=== PATIENT | male | born 2000 | race African-American/Black ===

== ENCOUNTER 2021-03-20 21:53 | Emergency (ER) | payer OTHER ==
[2021-03-20] MEDS ORDERED: Ondansetron PF 4 MG/2 ML Vial ONE (23:55)
[2021-03-20] MEDS ORDERED: Morphine 4 MG/ML VIAL ONE (23:55)
[2021-03-21 00:35] LABS: #Eosinphils 0.1 10x3/uL (0.0-0.5); #Monocytes 0.3 10x3/uL (0.0-1.1); #Neutrophils 4.8 10x3/uL (1.5-8.4); %Basophils 0.4 % (0.0-2.0); %Eosinophils 1.4 % (0.0-6.0); %Lymphocytes 7.5 % (18.0-47.0); %Monocytes 5.9 % (0.0-10.0); %Neutrophils 84.6 % (40.0-75.0); Mean Corpuscular Hemoglobin 25.8 pg (27.0-33.0); Mean Corpuscular Volume 78.2 fl (81.2-95.1); Mean Platelet Volume 8.7 fl (7.4-10.4); Platelet Count 347 10x3/uL (150-450); RBC Distribution Width 12.7 % (11.5-14.5); White Blood Cell (WBC) Count 5.6 10x3/uL (3.5-10.5)
[2021-03-21 00:58] LABS: ALT (SGPT) 13 U/L (8-55); AST (SGOT) 14 U/L (5-34); Albumin 4.4 g/dL (3.5-5.0); Alkaline Phosphatase 116 U/L (40-110); Anion Gap 17 mmol/L (10-20); BUN (Urea Nitrogen) 10 mg/dL (8.9-20.6); Bilirubin, Total 0.4 mg/dL (0.2-1.2); Calc. Creatinine Clearance 0 mL/min (70-130); Calcium 9.9 mg/dL (7.8-10.44); Carbon Dioxide 24 mmol/L (22-29); Chloride 98 mmol/L (98-107); Globulin 3.7 g/dL (2.4-3.5); Glucose 313 mg/dL (70-105); Lipase 15 U/L (8-78); Potassium 4.2 mmol/L (3.5-5.1); Protein, Total 8.1 g/dL (6.0-8.3); Sodium 135 mmol/L (136-145)
[2021-03-21 02:06] LABS: Bilirubin Neg (Negative); Blood, Urine 10 (Negative); Clarity Clear (Clear); Glucose, Urine (Dipstick) >=1000 mg/dL (Negative); Ketone, Urine 50 mg/dL (Negative); Leukocyte Negative (Negative); Nitrite Negative (Negative); Protein, Urine (Dipstick) 100 mg/dl (Neg-Trace); Urobilinogen Normal mg/dL (Less than 2)
[2021-03-21 02:17] LABS: Bacteria/HPF Rare-Few HPF (None Seen); RBC/HPF 0-3 HPF (0-3); WBC/HPF 0-3 HPF (0-3)
[2021-03-21] MEDS ORDERED: Pantoprazole 40 MG VIAL ONE (02:49)
[2021-03-21] MEDS ORDERED: Famotidine/PF 20 mg/2ml Vial ONE (02:50)
[2021-03-21 13:52] LABS: Hemoglobin A1c Greater than 14.0 % (4.0-6.0)
== END 2021-03-21 03:15 | disposition home or self-care (01) ==
LOC: CSHERS 21:53
DX: K29.70 Gastritis, unspecified, without bleeding (principal); F17.220 Nicotine dependence, chewing tobacco, uncomplicated
CPT/HCPCS: 74177; 80053; 81003; 81015; 83036; 83690; 85025; 93005; 96374; 96375; C9113; J2270; J2405; S0028

== ENCOUNTER 2024-03-17 17:45 | Emergency (ER) | payer BC, SELFPAY ==
[2024-03-17] MEDS ORDERED: traMADol HCl 50 MG TAB ONE (19:42)
== END 2024-03-17 20:35 | disposition home or self-care (01) ==
LOC: CSHERS 17:45
DX: S83.92XA Sprain of unspecified site of left knee, initial encounter (principal); F17.220 Nicotine dependence, chewing tobacco, uncomplicated; X50.1XXA Overexertion from prolonged static or awkward postures, initial encounter; Y93.02 Activity, running
CPT/HCPCS: 99283